=== PATIENT | male | born 1990 | race Hispanic/Latino ===

== ENCOUNTER 2020-02-15 04:03 | Emergency (ER) | payer OTHER | END 2020-02-15 04:29 | LOC: EDH 04:03 | DX: Z02.83 Encounter for blood-alcohol and blood-drug test (principal); Z72.0 Tobacco use | CPT/HCPCS: 36415 ==

== ENCOUNTER 2020-05-21 10:44 | Emergency (ER) | payer SELFPAY | END 2020-05-21 12:15 | disposition left against medical advice (07) | LOC: EDH 10:44 | DX: T14.8XXA Other injury of unspecified body region, initial encounter (principal); W34.09XA Accidental discharge from other specified firearms, initial encounter; Y93.89 Activity, other specified; Y92.098 Other place in other non-institutional residence as the place of occurrence of the external cause; Y99.8 Other external cause status | CPT/HCPCS: 99281 ==

== ENCOUNTER 2020-11-10 03:05 | Emergency (ER) | payer OTHER | END 2020-11-10 04:57 | disposition home or self-care (01) | LOC: EDH 03:05 | DX: Z02.83 Encounter for blood-alcohol and blood-drug test (principal) | CPT/HCPCS: 36415 ==